=== PATIENT | male | born 1965 | race Caucasian/White ===

== ENCOUNTER 2019-04-11 08:26 | Inpatient (IN) ==
--- NOTE | 2019-04-11 08:51 | PROVIDER DOCUMENTATION ---
HPI-Neurological Disorder - General Chief Complaint: Stroke-Like Symptoms Stated Complaint: RT SIDE NUMBNESS Time Seen by Provider: 04/11/19 08:41 Allergies/Adverse Reactions: Patient Allergies Allergy/AdvReac Type Severity Reaction Status Date / Time No Known Allergies Allergy Verified 04/11/19 09:14 Home Medications: Home Medication List Medication Instructions Recorded Confirmed Last Taken Type Eszopiclone 3 mg PO HS 04/11/19 04/11/19 04/10/19 History Hydrocodone Bit/Acetaminophen 1 tab PO PRN PRN 04/11/19 04/11/19 04/10/19 History [Hydrocodon-Acetaminophn 10-325] Levothyroxine [Synthroid] 100 mcg PO DAILY 04/11/19 04/11/19 04/10/19 History Losartan [Cozaar] 50 mg PO DAILY 04/11/19 04/11/19 04/10/19 History - History of Present Illness-Neuro Nature of Presenting Problem: 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 States worse this am. last time seen normal three days ago when he went to [place] to see his daughter. no facial droops or slurry speech, symptoms more in the lower leg than arm. Onset/Duration: reports: 3 days ago Timing: reports: still present, getting worse Character of Altered Mental Status: reports: other. denies: disoriented, conf used, trouble concentrating, unresponsive, seizure activity, decreased responsiveness Character of Deficits: reports: new weakness, altered sensation, decreased ability to stand, decreased ability to walk. denies: vision problem/glaucoma, impaired speech, impaired swallowing New weakness or altered sensation location:: reports: RUE, RLE. denies: right facial Cognitive Baseline: alert, oriented x3 Gait Baseline: walks without assistance Associated Symptoms: denies: short of breath, confusion, fatigue, fever/chills, loss of consciousness Similar Symptoms Previously?: No Recently seen or treated by another doctor?: No Review of Systems - Adult - REVIEW OF SYSTEMS - ADULT Constitutional: denies: fever, fatique Eyes: reports: no symptoms reported Ears, Nose, Mouth & Throat: reports: no symptoms reported Cardiovascular: reports: no symptoms reported Respiratory: reports: no symptoms reported Gastrointestinal: reports: no symptoms reported Genitourinary: reports: no symptoms reported Musculoskeletal: reports: see HPI Integumentary: reports: hair loss Neurological: reports: see HPI. denies: seizure, slurred speech Psychiatric: reports: no symptoms reported Endocrine: reports: no symptoms reported Hematologic/Lymphatic: reports: no symptoms reported Allergic/Immunologic: reports: no symptoms reported Past History - Adult - PAST MEDICAL HISTORY-ADULT Review of Records: reports: Nursing Assessment Review Physical Exam- Neurological - Physical Exam-Neuro Initial Vital Signs Reviewed: Yes General Appearance: alert, no apparent distress Eye Exam: bilateral eye: PERRL, EOMI HENMT: normocephalic/atraumatic, normal ENT inspection Head Injury: no evidence of injury. negative: active bleeding, Barahona's Sign, ecchymosis, raccoon eyes, swelling, tenderness Neck: non-tender, supple Respiratory: chest non-tender, lungs clear, normal breath sounds, no pleuratic chest pain, no respiratory distress, no accessory muscle use Cardiovascular: normal peripheral pulses, regular rate, rhythm, no edema, no gallop, no JVD, no murmur Abdominal Exam: normal bowel sounds, non tender, soft, no organomegaly Lymphatic: no adenopathy Extremity: no pedal edema, no calf tenderness. 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 negative: abnormal speech, facial asymmetry, facial droop Coordination/Gait: negative: normal finger to nose Motor/Sensory: weak motor strength RUE, weak motor strength RLE Neurologic: negative: facial droop, focal weakness Integumentary: normal color, warm/dry Psych/Mental Status: normal mood/affect - Glascow Coma Scale Best Eye Response: (4) open spontaneously Best Verbal Response: (5) oriented Best Motor Response: (6) obeys commands Progress - PLAN OF CARE/RESULTS Progress/Plan/Lab Results: Vital Signs - 8 hr 04/11/19 08:29 Temperature 98.7 F Pulse Rate 72 Respiratory Rate 18 Blood Pressure 183/98 O2 Sat by Pulse Oximetry 98 Laboratory Results - last 24 hr 04/11/19 09:30 WBC 9.47 RBC 5.55 Hgb 17.2 Hct 49.3 MCV 88.8 MCH 31.0 MCHC 34.9 RDW Std Deviation 14.1 Plt Count 188 MPV 10.3 Immature Gran % (Auto) 0.2 Neut % (Auto) 70.2 Lymph % (Auto) 23.4 [place] % (Auto) 5.3 Eos % (Auto) 0.7 Baso % (Auto) 0.2 Immature Gran # (Auto) 0.02 Neut # (Auto) 6.64 H Lymph # (Auto) 2.22 [place] # (Auto) 0.50 Eos # (Auto) 0.07 Baso # (Auto) 0.02 Orders Category Date Time Status Admit - [facility] Routine AdmDCTranf 04/11/19 09:53 Active Cardiac Monitoring DIRECTED Care 04/11/19 08:35 Active Oxygen Therapy- ED Nursing DIRECTED Care 04/11/19 08:35 Active Saline Loc NOW Care 04/11/19 08:35 Active CHEST-2 VIEWS [RAD] Stat Exams 04/11/19 08:[address] HEAD W/O CONTRAST [CT] Stat Exams 04/11/19 08:50 Completed CBC WITH ELECTRONIC DIFF [HEME] Stat Lab 04/11/19 09:30 Completed CK PROFILE [SP CHEM] Stat Lab 04/11/19 09:30 Received COMPREHENSIVE METABOLIC PANEL [CHEM] Stat Lab 04/11/19 09:30 Received PRO B-NATRIURETIC PEPTIDE Stat Lab 04/11/19 09:30 Received PROTIME WITH INR [COAG] Stat Lab 04/11/19 09:30 Received PTT [COAG] Stat Lab 04/11/19 09:30 Received TROPONIN T Stat Lab 04/11/19 09:30 Received Aspirin Med 04/11/19 09:45 Discontinued 81 mg PO NOW ONE CP/SOB/Palp >45 yrs of Age Stat Oth 04/11/19 08:35 Ordered EKG [EKG] Stat Ther 04/11/19 08:35 Ordered Transfer/Admit Order [TRANSFER] Routine Transfer 04/11/19 09:54 Ordered Result Diagrams: 04/11/19 09:30 - EKG 1 Time of EKG reading by physician:: 08:48 EKG Read and Signed by:: Delicia Tafoya EKG Interpretation (*Must complete 3 of following elements*): Normal ( Borderline) Rate: 77 Rhythm: NSR [place]: normal QRS: RBB (Incomplete) [place] Interval: normal ST Wave: normal - XRAY 1 XRAY Study: Chest Impression: See EMR Report ([facility] - [address], [address], [place] [address] [place] [address] Department of Imaging Patient: MIKE ARRIAGA ADM Date: 04/11/19MR#: [id number] : 1965ADM Status: REG ERAcct#: [id number] Age/Sex: 54/MRoom/Bed: Loc: P.ED Ordering Physician: Delicia Tafoya MD Family Physician: Fredis Miramontes MD Reason for Procedure: stroke like sx Signed EXAM: CHEST-2 VIEWS HISTORY: stroke like sx TECHNIQUE: PA and Lateral chest x-ray COMPARISON: None. FINDINGS: The cardiomediastinal silhouette is within normal limits. There is pulmonary emphysema. There is biapical pleural thickening. The pulmonary vasculature is not congested. No infiltrate, effusion, or pneumothorax is appreciated. IMPRESSION: No acute cardiopulmonary abnormality is identified. Electronically signed by Donna Box 04/11/2019 9:33 AM 04/11/19 0933 Interpreting Physician: Donna Box MD Dictated Date/Time: 04/11/19 0932 cc: Delicia Tafoya MD; Fredis Miramontes MD) - CT/MRI 1 CT Study: Head Impression: See EMR Report ([facility] - [address], [address], [place] [address] [place] [address] Department of Imaging Patient: MIKE ARRIAGAADM Date: 04/11/19MR#: [id number] : 1965ADM Status: REG ERAcct#: [id number] Age/Sex: 54/MRoom/Bed: Loc: P.ED Ordering Physician: Delicia Tafoya MD Family Physician: Fredis Miramontes MD Reason for Procedure: CVA Signed EXAM: CT HEAD W/O CONTRAST HISTORY: CVA TECHNIQUE: Images were obtained from the skull base to vertex without IV contrast as per standard protocol. COMPARISON: None. FINDINGS: EXAM: CT HEAD W/O CONTRAST HISTORY: CVA TECHNIQUE: Routine without contrast. COM PARISON: None. FINDINGS: There are no extra-axial collections. There is no evidence for acute hemorrhage. There is no midline shift or mass effect. There are multiple bilateral lacunar infarcts within the basal ganglia and thalami, some of which appear chronic, some indeterminate age. Consider follow-up MRI. There is diffuse hypodensity within the deep white matter which is nonspecific in appearance but likely related to microvascular disease. There is moderate cerebral atrophy. IMPRESSION: Bilateral lacunar infarcts some chronic, some age indeterminate. No evidence for acute hemorrhage. Consider further evaluation with MRI. Diffuse cerebral atrophy and microvascular disease. This exam was performed using automated exposure control, adjustment of mA or kV according to patient size, and/or use of iterative reconstruction technique. IMPRESSION: This exam was performed using automated exposure control, adjustment of mA or kV according to patient size, and/or use of iterative reconstruction technique. Electronically signed by Donna Box 04/11/2019 9:39 AM 04/11/19 0939 Interpreting Physician: Donna Box MD Dictated Date/Time: 04/11/1934 cc: Delicia Tafoya MD; Fredis Miramontes MD) - CONSULTS/PCP/HOSPITALIST Notification #1 *Consult/PCP/Hospitalist*: Dr. Odell Time Discussed: 09:57 Reason/Comments: CVA sx onset 3 days ago Consult Disposition: Admit Departure - Departure Date of Disposition Decision: 04/11/19 Time of Disposition Decision: 09:43 DIAGNOSIS: CVA (cerebral vascular accident) Qualifiers: CVA mechanism: unspecified Qualified Code(s): I63.9 - Cerebral infarction, unspecified Disposition: ADMITTED INPATIENT 09 Certified Medical Emergency: Emergent Condition: Good Referrals and Follow-Ups: Fredis Miramontes MD [Primary Care Provider] - - Critical Care Note This patient required my direct & personal management of CC.: No Attestation - Physician/ NATALI Attestation Patient care was provided by Advanced Practice Provider:: No The physician spent face to face time with patient:: Yes Advanced Practice Provider documentation review:: Supervising physician onsite and consulted in the evaluation and care of this patient. The physician did have a face to face encounter with the patient. - NIH Stroke Scale NIH Type: Initial Evaluation Level of Consciousness: 0-Alert LOC Questions (ask month and age): 0-Answers Both Correctly LOC Commands (ask to open & close eyes;make a fist, let go): 0-Obeys Both Correctly Best Gaze (horizontal eye movement): 0-Normal Visual (use finger movement, counting or visual threat): 0-No Visual Loss Facial Palsy (show teeth or raise eyebrows & close eyes tght: 0-Symmetrical Movement Motor Function-left arm: 0-Normal Motor Function-right arm: 1-Drift Motor Function-left le-Normal Motor Function-right le-Some Effort Against [place] Limb Ataxia(gdupos-yjbi-simbqg, or heel to fiore): 1-Present in one limb Sensory(pin prick to face,arms,trunk,legs-compare side/side): 1-Mild to Moderate Decrease in Sensation Best Language(name item/read sentence.Ex-Down to Earth): 0-No Aphasia Dysarthria(Pt read words or say words Ex.Mama,Tip-Top,Thanks: 0-Normal Articulation Extinction and Inattention: 0-Normal NIH Total Score: 5 Modified [place] Score Criteria: 2-slight disability Stroke tPA Guidelines - Inclusion Criteria for IV tPA 18 years old or older: Yes Ischemic stroke with measurable deficit: No Onset <3 hours ago *OR* 3-4.5 hours ago: No - Exclusion Criteria for IV tPA Evidence of intracranial hemorrhage on CT: No Presentation suggest SAH: No CT reveals defined area of hypodensity: No Evidence of AVM, neoplasm, aneurysm: No Seizure at stroke onset: No Active internal bleeding or acute trauma: No Platelet Count Less Than 100,000: No Heparin Within Last 48 HRS (PTT >Lab normal limits): No INR > 1.7 (warfarin use): No Use IIB/IIIA inhibitors within 24 hours: No Serious Head Trauma Within Last 3 Months: No Arterial Puncture Within Last 7 Days: No Lumbar Puncture Within Last 7 Days: No Repeated systolic Blood Pressure >185 or Diastolic >110: No - Additional Exclusion Criteria for IV tPA Currently on Coumadin: No Patient older than 80: No Prior stroke and diabetes: No Baseline NIHSS score > 25: No - Relative Contraindications to IV tPA CT reveals extensive area of infarct (>1/3 MCA territory): No Minor or rapidly improving stroke symptoms: Yes Major Surgery or Serious Trauma In Previous 14 Days: No AMI within 3 months: No Gastrointestinal or Urinary Tract hemorrhage in Past 21 Days: No Post - AMI pericarditis: No Blood Glucose Less Than 50 mg/dl or Greater Than 400 mg/dl: No - Consultation Candidate for:: NOT A CANDIDATE Reason not a candidate:: Symptom onset 3 days ago. Minor symptoms.
--- NOTE | 2019-04-11 09:35 | Diag Imaging Result Doc PS360 ---
EXAM: CHEST-2 VIEWS HISTORY: stroke like sx TECHNIQUE: PA and Lateral chest x-ray COMPARISON: None. FINDINGS: The cardiomediastinal silhouette is within normal limits. There is pulmonary emphysema. There is biapical pleural thickening. The pulmonary vasculature is not congested. No infiltrate, effusion, or pneumothorax is appreciated. IMPRESSION: No acute cardiopulmonary abnormality is identified. Electronically signed by Donna Box 04/11/2019 9:33 AM
--- NOTE | 2019-04-11 09:41 | Diag Imaging Result Doc PS360 ---
EXAM: CT HEAD W/O CONTRAST HISTORY: CVA TECHNIQUE: Images were obtained from the skull base to vertex without IV contrast as per standard protocol. COMPARISON: None. FINDINGS: EXAM: CT HEAD W/O CONTRAST HISTORY: CVA TECHNIQUE: Routine without contrast. COMPARISON: None. FINDINGS: There are no extra-axial collections. There is no evidence for acute hemorrhage. There is no midline shift or mass effect. There are multiple bilateral lacunar infarcts within the basal ganglia and thalami, some of which appear chronic, some indeterminate age. Consider follow-up MRI. There is diffuse hypodensity within the deep white matter which is nonspecific in appearance but likely related to microvascular disease. There is moderate cerebral atrophy. IMPRESSION: Bilateral lacunar infarcts some chronic, some age indeterminate. No evidence for acute hemorrhage. Consider further evaluation with MRI. Diffuse cerebral atrophy and microvascular disease. This exam was performed using automated exposure control, adjustment of mA or kV according to patient size, and/or use of iterative reconstruction technique. IMPRESSION: This exam was performed using automated exposure control, adjustment of mA or kV according to patient size, and/or use of iterative reconstruction technique. Electronically signed by Donna Box 04/11/2019 9:39 AM
[2019-04-11] MEDS ORDERED: ASPIRIN PO ONE (09:45)
[2019-04-11 09:54] LABS: BASO# 0.02 X1000 (0.0-0.2); BASO% 0.2 % (0.0-0.8); EOS# 0.07 X1000 (0.0-0.7); EOS% 0.7 % (0.0-10.0); HEMATOCRIT 49.3 % (42.0-52.0); HEMOGLOBIN 17.2 g/dL (14.0-18.0); IMM GRAN# 0.02 X1000 (0.0-0.04); IMM GRAN% 0.2 % (0.0-0.5); LYMPH# 2.22 X1000 (1.2-3.4); LYMPH% 23.4 % (20.5-51.1); MCHC 34.9 g/dL (33-37); MCV 88.8 FL (81-99); MONO% 5.3 % (1.7-9.3); MPV 10.3 FL (7.4-10.4); NEUT# 6.64 X1000 (1.4-6.5); NEUT% 70.2 % (42.2-75.2); PLT 188 X1000 (130-400); RBC 5.55 XMIL (4.7-6.1); RDW 14.1 % (11.5-14.5); WBC 9.47 X1000 (4.8-10.8)
[2019-04-11 10:11] LABS: INR 0.98; PROTIME 13.5 Seconds (11.0-16.0)
[2019-04-11 10:12] LABS: PTT 25.2 Seconds (22.3-41.8)
[2019-04-11 10:31] LABS: AGAP 15; ALBUMIN 4.6 g/dL (3.5-5.0); ALKALINE PHOSPHATASE 58 U/L (32-122); BUN 7 mg/dL (8-22); CHLORIDE 97 mmol/L (98-107); COSMO 271; CREATININE 0.4 mg/dL (0.7-1.2); ESTIMATED GFR > 60; GLUCOSE 86 mg/dL (70-104); GOT 29 U/L (10-34); GPT 10 U/L (10-44); POTASSIUM 5.2 mmol/L (3.5-5.1); SODIUM 137 mmol/L (136-145); TCO2 25 mmol/L (25-35); TOTAL PROTEIN 7.7 g/dL (6.3-8.3)
[2019-04-11 10:36] LABS: CK PROFILE 297 U/L (24-204)
[2019-04-11 10:49] LABS: CK INDEX 1.9 (0.0-2.5); CK-MB 5.65 ng/mL (0.0-5.0)
--- NOTE | 2019-04-11 11:36 | EKG Report ---
Test Performed on : 04/11/2019 08:48:12 AM Test Reason : stroke like sx Blood Pressure : / mmHG Vent. Rate : 077 BPM Atrial Rate : 077 BPM P-R Int : 150 ms QRS Dur : 110 ms QT Int : 398 ms P-R-T Axes : 042 070 047 degrees QTc Int : 450 ms Normal sinus rhythm. Incomplete right bundle branch block Borderline ECG No previous ECGs available Unconfirmed Result
--- NOTE | 2019-04-11 11:43 | Diag Imaging Result Doc PS360 ---
EXAM: MRA BRAIN W/O CONTRAST HISTORY: CVA TECHNIQUE: 3-D [id number] MRA brain COMPARISON: None. FINDINGS: The distal internal carotid arteries, bilateral anterior cerebral arteries, bilateral middle cerebral arteries, and bilateral posterior cerebral arteries are patent. Basilar artery is patent. No aneurysm or focal occlusion is appreciated. There are multifocal nonocclusive narrowings within the bilateral more distal posterior cerebral arteries. IMPRESSION: No focal large vessel occlusion. Small multifocal narrowings involving the bilateral posterior cerebral arteries may be related to scattered atherosclerotic disease. Correlate clinically. Electronically signed by Donna Box 04/11/2019 11:40 AM
--- NOTE | 2019-04-11 11:49 | Diag Imaging Result Doc PS360 ---
EXAM: MRI BRAIN W/O CONTRAST 04/11/2019 HISTORY: CVA TECHNIQUE: T1 sagittal and axial, T2, FLAIR, DWI axial and coronal gradient echo. COMMENT: There is a somewhat irregularly shaped focus of restricted diffusion in the mcrae radiata region of the left hemisphere. There is extensive patchy abnormal increased T2-weighted signal intensity throughout the periventricular white matter and in a patchy distribution in the subcortical white matter and basal ganglia bilaterally. There are lacunae present particularly on the right in the basal ganglia. There is no evidence of bleed or abnormal extra-axial fluid collection. There are no previous studies. IMPRESSION: Chronic ischemic microvascular change with acute or subacute infarction in the deep white matter of the left hemisphere as described. The findings were discussed with HALIE Avery at 04/11/2019 11:46 AM. Electronically signed by Nakul Estes 04/11/2019 11:46 AM
[2019-04-11] MEDS ORDERED: TYLENOL PO PRN (12:09)
[2019-04-11] MEDS ORDERED: ZOFRAN IV PRN (12:09)
--- NOTE | 2019-04-11 13:51 | ECHO REPORT ---
ORDER DATE: 04/11/2019 ECHOCARDIOGRAPHIC MEASUREMENTS: 1. Interventricular septum 1.1. 2. Left ventricular posterior wall 1.1. 3. Diastolic diameter 5.4 4. Left atrium 3.5. 5. Aorta 3.6. SUMMARY: 1. Aortic valve leaflets are trileaflet. 2. Pulmonic valve was normal. There is trace pulmonary regurgitation. 3. Tricuspid valve was normal. 4. Mitral valve was normal. There is mild mitral regurgitation. 5. Peak velocity across the aortic valve was less than 2 m/sec. There is no aortic stenosis. There is moderate eccentric aortic regurgitation. 6. There is mild tricuspid regurgitation. Peak velocity across the tricuspid valve was less than 2 m/sec. 7. Normal left ventricular cavity size. Estimated ejection fraction of 65%. 8. There is diastolic dysfunction. 9. There is no pericardial effusion or obvious intracardiac mass or thrombus. cc: Claus Guadalupe MD
--- NOTE | 2019-04-11 14:28 | HISTORY AND PHYSICAL ---
PRIMARY CARE PROVIDERS: Fredis Miramontes MD CHIEF COMPLAINT: Right-sided numbness and weakness. HISTORY OF PRESENT ILLNESS: Mr. Rader is a pleasant 54-year-old male who carries a past medical history of insomnia, chronic back pain, Graves disease, status post thyroidectomy 10 years ago, hypertension, tobacco use and abuse who reports 3 days ago he had right-sided weakness. He reports he feels like sometimes it is difficult to get his words out at times. However, it is not all the time. He felt like he had improved yesterday. However, this morning he had an increase in his weakness on the right side, and had a fall in the bathroom. At this point, is when he was brought in to [place] ED. Initial workup with a head CT showed bilateral medical infarcts, some chronic, and some age indeterminate, but there was no evidence of acute hemorrhage. Recommended follow-up MRI. Brain MRI showed chronic ischemic microvascular changes with acute or subacute infarction in the deep white matter of the left hemisphere. Brain MRA showed no focal large vessel occlusion. Small micro focal narrowings in the bilateral posterior cerebral arteries with scattered atherosclerotic disease. We are currently pending an echocardiogram as well as carotid Doppler's. We will initiate him on full-dose aspirin therapy. Consult Neurology. Continue with neuro checks. He does not have any difficulty swallowing so we will place him on a healthy heart diet up with assistance only. He did have a slightly elevated potassium at 5.2. However, he has been on losartan. We will withhold that for now, and allow for permissive hypertension. He does seem a little clinically dehydrated. We will give him some IV hydration overnight. PAST MEDICAL HISTORY: 1. Graves disease status post thyroidectomy 10 years ago. 2. Hypertension. 3. Back pain, chronic. 4. Insomnia. 5. Tobacco use. PAST SURGICAL HISTORY: Thyroidectomy. Denies any other. SOCIAL HISTORY: He is . He lives at home with his . He has a grown son at the bedside as well as a daughter in [place]. He does smoke 1 to 2 pack of cigarettes per day. No alcohol or illicit drug use. FAMILY HISTORY: Mother from aneurysm. He does not report any other heart disease, cancer, or diabetes in the family. ALLERGIES: No known drug allergies. HOME MEDICATIONS: 1. Losartan 50 mg p.o. daily. 2. Eszopiclone 30 mg p.o. at bedtime. 3. [place] 10 one tab p.o. p.r.n. back pain. 4. Synthroid 100 mcg p.o. daily. PHYSICAL EXAMINATION: VITAL SIGNS: Temperature 97.7 degrees, heart rate 78, respirations 18, blood pressure 169/88, and O2 is 100% on room air. GENERAL: Mr. Rader is a pleasant 54-year-old male who is lying on the bed in no acute distress. HEENT: Atraumatic, normocephalic. PERRL. NECK: Supple. Trachea midline. CV: S1-S2 appreciated with a possible murmur heard best on the right 2nd intercostal space. PULMONARY: Bilateral breath sounds clear. No use of accessory muscles. GI: Soft. Nontender. Nondistended. Positive bowel sounds in four quadrants. SKIN: Warm, dry, and intact. NEUROLOGIC: Patient is awake, alert, oriented, and follows commands. Moves all extremities. EXTREMITIES: He does have right upper and lower extremity weakness about 4/5 compared to the left that is 5/5. He did have some initial problems with shoulder shrug. He does have a pronator drift. His smile was symmetrical at times. He seemed to stutter his words, but not completely. He also mumbles a little bit. He did not have any difficulty answering any questions. DIAGNOSTIC DATA: Per HPI. LABORATORY DATA: White count 9, hemoglobin and hematocrit 17 and 49, platelet count is 188,000. Sodium 137, potassium 5.2, BUN 7, creatinine 0.4. Blood glucose is 86. Total bilirubin 1.80. Troponin less than 0.010. Currently pending echo and carotid Doppler's. ASSESSMENT AND PLAN: 1. Left-sided CVA with continued right-sided weakness. We will consult physical therapy. Dr. Jolley with Neurology. Continue with full-dose aspirin, initiate him on a statin. We will check a lipid profile. Allow for permissive hypertension for 24 hours 220/120. Continue with neuro checks. We will allow him to eat a healthy heart diet. Encourage him to quit smoking. [facility] rehab to [facility] today. 2. Mild hyperkalemia. The patient was on Losartan. We will hold that and gently hydrate him. 3. Clinical dehydration. We will gently hydrate him overnight. Recheck his potassium in the morning. 4. Hypertension. Again, we are going to allow for permissive hypertension. 5. Graves disease status post thyroidectomy. We will continue Synthroid. Check TSH in the morning. 6. Chronic back pain. We will give him his home [place]. 7. Insomnia. 8. Tobacco use and abuse. We will provide the patient with a nicotine patch. Encouraged smoking cessation in lieu of his new diagnosis of CVA. 9. Further recommendation to follow physician evaluation, laboratory and diagnostic data. Dictated by HALIE Oro for Bro Odell MD cc: MD César Minor III, MD Kenneth E. Mashburn, MD MTDD
[2019-04-11] MEDS: NS 1,000 ML IV SCH (16:21)
[2019-04-11] MEDS: NICODERM PATCH TD SCH (16:21)
--- NOTE | 2019-04-11 17:42 | Extremity Venous Study ---
EXAM: Carotid Ultrasound 04/11/2019 HISTORY: CVA TECHNIQUE: Carotid Doppler ultrasound COMMENT: There is some atheroma in the left carotid bulb and to a lesser extent in the right carotid bulb and the proximal internal carotid arteries bilaterally. There is no evidence of hemodynamically significant stenosis by velocity criteria. There is antegrade flow in both vertebral arteries. IMPRESSION: No evidence of significant stenosis (0-39%.) Electronically signed by Nakul Estes 04/11/2019 5:39 PM
--- NOTE | 2019-04-11 18:15 | CONSULTATION ---
DATE OF CONSULTATION: 04/11/2019 Mr. Rader is 54 years old and it looks like he has had a stroke. History from the patient is that he woke 3 days ago noticing numbness and heaviness in the right limbs. Speech was slurred. He had some trouble swallowing. He did not notice vision disturbance. Gait was unsteady. He did not have headache at that point. There was never altered consciousness or collapse. His report is a little bit inconsistent and difficult to follow and there may have been some fluctuation in deficit over the next few days, but he seems to have stabilized and may be a little bit better today. He reports no prior similar symptoms. He has never had prior diagnosed stroke. There is no history of serious head injury. He has never had a seizure or other neurologic event. He is right handed. Past history is remarkable for hypertension and hypothyroidism. He reports taking all of his medicines correctly, seldom missing a dose. He thinks he might have taken aspirin daily in the past but that has not been recommended recently, by his report. He denies illicit drug use. He continues to smoke cigarettes. Workup here includes brain MRI showing usual changes across the hemispheres and additional restricted diffusion in the left subcortical area consistent with recent infarction there. Carotid ultrasound is ordered. Echocardiogram is unremarkable. He presented with blood pressure 183/98 and since admission, systolic blood pressures have been stable 160s-170s. CK was elevated 297. I do not see anything else remarkable on the chemistry profile. On exam, Mr. Rader is awake, alert, attentive, appropriate. Speech is dysarthric but easily understood. Language function is intact on bedside testing. Recent and remote memory are good. He is oriented. Head and neck are unremarkable. Visual amor are full tested by confrontational finger counting. Facial motility is diminished on the right in an upper motor neuron pattern. Facial sensation is intact. Gag is intact. Tongue is midline. He can hear. Shoulder shrug is equal. Strength is normal in the left limbs. I can overcome the right deltoid 3/5, wrist extensor 4/5, sports development officer 4+/5, iliopsoas 4/5, anterior tibialis 4+/5. Tone is increased in the right limbs. He did rapid alternating movements better with the left hand than the right. He did better with left [id number] and left [id number] and than on the right. He reports equal sensation over the limbs. Proprioception is good at the great toe MTP joint bilaterally. I did not test his gait. Plantar response is silent bilaterally. Reflexes are 1+ bilaterally at the ankles. 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 He has risk factors including cigarette smoking and hypertension. I do not see lipid profile reported in our system. If that has not been checked recently, we should check that. If there is report of outpatient lipid profile, I do not think that needs to be repeated. If cholesterol is elevated, he would be a candidate for statin. If cholesterol is normal, we might consider moderate dose statin for 90 days for endothelial benefit. If there are no contraindications, I would continue daily aspirin. I strongly encouraged him to quit smoking cigarettes. I encouraged him to keep followup with his primary clinic. If carotid ultrasound does not show anything remarkable, I will not have any suggestion for further workup from Neurology standpoint. Thanks for asking Neurology to see Mr. Rader. I will be glad to see him as an outpatient, if needed. cc: MD CORTNEY Robertson III
--- NOTE | 2019-04-11 19:59 | HISTORY AND PHYSICAL ---
ADDENDUM REPORT: Patient seen and examined by myself. Full note dictated and discussed with nurse practitioner. Patient presented to the hospital, noting that he had right-sided weakness and numbness in his right arm and leg. This started approximately 3 days ago. Scans do show a subacute stroke. We will admit him to the hospital, check an echo, carotids, place him on cholesterol medication and we will follow. cc: Bro Odell MD
[2019-04-11] MEDS ORDERED: LIPITOR PO SCH (21:00)
[2019-04-12] MEDS: NS 1,000 ML IV SCH (04:24)
[2019-04-12 05:58] LABS: BASO# 0.01 X1000 (0.0-0.2); BASO% 0.1 % (0.0-0.8); EOS# 0.03 X1000 (0.0-0.7); EOS% 0.4 % (0.0-10.0); HEMATOCRIT 43.8 % (42.0-52.0); HEMOGLOBIN 15.5 g/dL (14.0-18.0); IMM GRAN# 0.01 X1000 (0.0-0.04); IMM GRAN% 0.1 % (0.0-0.5); LYMPH# 1.82 X1000 (1.2-3.4); LYMPH% 26.1 % (20.5-51.1); MCH 31.1 PG (27-31); MCHC 35.4 g/dL (33-37); MCV 87.8 FL (81-99); MONO# 0.47 X1000 (0.11-0.59); MONO% 6.7 % (1.7-9.3); MPV 9.2 FL (7.4-10.4); NEUT# 4.63 X1000 (1.4-6.5); NEUT% 66.6 % (42.2-75.2); PLT 188 X1000 (130-400); RBC 4.99 XMIL (4.7-6.1); RDW 13.7 % (11.5-14.5); WBC 6.97 X1000 (4.8-10.8)
[2019-04-12 06:25] LABS: AGAP 14; BUN 5 mg/dL (8-22); CALCIUM 8.4 mg/dL (8.8-10.2); CHLORIDE 103 mmol/L (98-107); COSMO 277; CREATININE 0.4 mg/dL (0.7-1.2); ESTIMATED GFR > 60; GLUCOSE 106 mg/dL (70-104); POTASSIUM 3.5 mmol/L (3.5-5.1); SODIUM 140 mmol/L (136-145); TCO2 23 mmol/L (25-35)
[2019-04-12] MEDS ORDERED: SYNTHROID PO SCH (07:00)
[2019-04-12] MEDS: NICODERM PATCH TD SCH (08:19)
[2019-04-12] MEDS ORDERED: ASPIRIN PO SCH (09:00)
[2019-04-12] MEDS ORDERED: COZAAR PO SCH (09:00)
[2019-04-12 12:28] VITALS: BP 173/81
--- NOTE | 2019-04-12 17:20 | DISCHARGE SUMMARY ---
ADMISSION DATE: 04/11/2019 DISCHARGE DATE: 04/12/2019 CONSULTATIONS: Dr. César Jolley with Neurology. PERTINENT PROCEDURES: 1. Head CT, bilateral lacunar infarcts, some chronic change age indeterminate. No evidence for acute hemorrhage. Consider MRI follow-up. 2. Brain MRA, no large focal vessel occlusion, small multifocal narrowings involving the bilateral posterior cerebral arteries. May be related to scattered atherosclerotic disease. Brain MRI. Chronic ischemic microvascular change with acute or subacute infarction in the deep white matter of the left hemisphere. 3. Echocardiogram EF of 65% with diastolic dysfunction. 4. Carotid Dopplers. No evidence of significant stenosis, 0 to 39 percent. DISCHARGE DIAGNOSES: 1. Acute dominant left hemispheric infarction with relatively pure motor deficit. Risk factors are tobacco abuse and hypertension. The patient has been evaluated by Neurology. He will work with physical therapy today and has had improvement in his right-sided weakness. We will send him home after physical therapy and set him up with home health or outpatient physical therapy. We will also put him on a moderate statin for 90 days as well as continue p.o. daily aspirin and follow up with Dr. Jolley if he chooses as well as his primary care provider. 2. Hypertension. We increased his losartan to 100 mg daily. 3. Tobacco use and abuse. We have educated him on smoking cessation as well as the means to quit. I have encouraged him to continue with nicotine patches. 4. Chronic back pain. Continue home [place]. 5. Insomnia. Continue home medications. 6. Graves disease status post thyroidectomy 10 years ago. HOSPITAL COURSE: Briefly, Mr. Rader is a pleasant 54-year-old male who carries a past medical history of insomnia, chronic back pain, Graves disease status post thyroidectomy 10 years ago, hypertension, tobacco use and abuse. He reports a 3-day history of right-sided weakness. He started experiencing this while he was in [place] visiting his daughter. He felt that his symptoms had improved the day before his admission. However, on the morning of his admission, he had an increase of weakness on the right side, had a fall in the bathroom. He was brought to the ED at that point. Initial workup with a head CT showed bilateral infarcts, some chronic, some age indeterminate but no acute hemorrhage. Followup MR/MRA of the brain did show chronic ischemic microvascular changes with acute or subacute infarction in the deep white matter of the left hemisphere. His carotid Dopplers did not show any clinical significance of stenosis. His echocardiogram did show an EF of 60% with diastolic dysfunction. Dr. Jolley followed up with him in the hospital. I feel that he could be on a statin for at least 90 days and continue with aspirin daily and encouraged smoking cessation as well as the means to quit. We will have him work with physical therapy today as his strength has seemed to improved, as well as his numbness. We will get Publicity Consultant involved and have him set him up with either home health with physical therapy or outpatient physical therapy. VITAL SIGNS: At time of discharge, temperature is 98.1 degrees, heart rate 71, respirations 14, blood pressure 179/94, O2 is 98% on room air. DISCHARGE DIET: Healthy heart. DISCHARGE MEDICATIONS: 1. Eszopiclone 3 mg p.o. at bedtime. 2. [place] 10 one tab p.o. p.r.n. back pain. 3. Synthroid 100 mcg p.o. daily. 4. Lipitor 40 mg p.o. at bedtime for 90 days. 5. Aspirin 325 mg p.o. daily. 6. Cozaar 100 mg p.o. daily. This was increased from 50 daily. 7. Nicotine patch 21 mg TD daily. The patient can get these [id number]. FOLLOW-UP: Mr. Rader is being discharged back home today with either home health physical therapy or outpatient physical therapy after he has been assessed by our PT team. We will continue to follow their recommendations. He is to follow up with his primary care provider, Dr. Fredis Miramontes in the next 7 to [address] Jolley if he chooses. He can return to the ED or call 911 for any worsening of symptoms. Dictated by HALIE Oro for Bro Odell MD cc: MD Fredis Minor
--- NOTE | 2019-04-14 10:35 | DISCHARGE SUMMARY ---
ADMISSION DATE: 04/11/2019 DISCHARGE DATE: 04/12/2019 HOSPITAL COURSE: Patient presented to the hospital with right-sided numbness and weakness. Thankfully, on discharge this is all improved. Blood pressures were elevated; currently have improved. We will discharge him home on a full-dose aspirin, as well as statin. We again encouraged him to stop smoking. Please see full dictation by nurse practitioner. cc: Bro Odell MD
== END 2019-04-12 14:45 | disposition home or self-care (01) | DRG 65 ==
LOC: P.ED 08:26 → P.MEDSURG 08:30
PROVIDERS: ATTEND Family Medicine